=== PATIENT | female | born 1980 | race American Indian/Alaskan Native ===

== ENCOUNTER 2019-02-18 19:54 | Emergency (ER) | payer OTHER ==
--- NOTE | 2019-02-18 20:36 | Emergency Department Report ---
Blank Doc - Documentation Documentation: 38 y/o female with No PMH and whom smoked THC yesterday presents to ED c/o of right chest pain that radiates to right neck and right arm. not associated with movement, breathing, or activity.
--- NOTE | 2019-02-18 21:22 | XRay Report ---
PROCEDURE: XR CHEST ROUTINE 2V TECHNIQUE: PA and lateral chest radiographs were obtained. HISTORY: Chest Pain COMPARISONS: None. FINDINGS: Heart: Normal. Mediastinum/Vessels: Normal. Lungs/Pleural space: Normal. Bony thorax: No acute osseous abnormality. IMPRESSION: Normal examination. This document is electronically signed by Kevin Callejas MD., February 18 2019 09:20:26 PM ET
[2019-02-18 21:29] LABS: Basophils % (Auto) 0.3 % (0.0-1.8); Eosinophils % (Auto) 0.5 % (0.0-4.3); Hematocrit 37.9 % (30.3-42.9); Hemoglobin 13.1 gm/dl (10.1-14.3); Lymphocytes % (Auto) 22.3 % (13.4-35.0); Mean Corpuscular HGB Conc 35 % (30-34); Mean Corpuscular Volume 93 fl (79-97); Monocytes # (Auto) 0.6 K/mm3 (0.0-0.8); Platelet Count 374 K/mm3 (140-440); Red Blood Count 4.08 M/mm3 (3.65-5.03); Red Cell Distribution Width 13.2 % (13.2-15.2)
[2019-02-18 21:41] LABS: Alanine Aminotransferase 21 units/L (7-56); Albumin 4.6 g/dL (3.9-5); BUN/Creatinine Ratio 20; Blood Urea Nitrogen 14 mg/dL (7-17); Calcium 9.8 mg/dL (8.4-10.2); Hemolysis Index 5
--- NOTE | 2019-02-18 22:20 | Emergency Department Report ---
ED Chest Pain HPI - General Chief Complaint: Chest Pain Stated Complaint: CHEST PAIN Time Seen by Provider: 02/18/19 22:07 Source: patient Mode of arrival: Ambulatory Limitations: No Limitations - History of Present Illness Initial Comments: Patient is a 38-year-old female that presents to the emergency room with complaints of right sided chest pain radiating to the right neck. Patient states it started at 7 AM this morning. Patient states it has been constant all day long. Patient states she came in because it has not eased up. Patient states the pain is a 2-3 out of 10. Patient states the pain is worse with movement and better with rest. Patient denies fever and chills. Patient denies having a past medical history. Denies diabetes. Patient denies hypertension. Patient denies smoking. Patient states she uses alcohol socially. MD Complaint: chest pain -: Sudden Onset: during rest Pain Location: right chest Pain Radiation: neck Severity scale (0 -10): 2 Quality: tightness Consistency: constant Improves With: rest Worsens With: movement re: denies: nausea, vomting, diaphoresis, dyspnea, sense of impending doom Other Symptoms: denies: cough, fever, syncope, rash, acid taste in mouth, leg swelling, palpitations, burping Treatments Prior to Arrival: none Aspirin use within the Past 7 Days: (0) No - Related Data On Oral Contraceptives: No Previous Rx's Medication Instructions Recorded Last Taken Type Metaxalone [Skelaxin] 800 mg PO TID PRN #15 tablet 02/18/19 Unknown Rx Allergies Allergy/AdvReac Type Severity Reaction Status Date / Time No Known Allergies Allergy Unverified 02/18/19 20:35 Heart Score - HEART Score History: Slightly suspicious EKG: Normal Age: < 45 Risk factors: No known risk factors Troponin: < normal limit HEART Score: 0 ED Review of Systems ROS: Stated complaint: CHEST PAIN Other details as noted in HPI Constitutional: denies: chills, fever Eyes: denies: eye pain, eye discharge, vision change ENT: denies: ear pain, throat pain Respiratory: denies: cough, shortness of breath, wheezing Cardiovascular: chest pain. denies: palpitations Endocrine: no symptoms reported Gastrointestinal: denies: abdominal pain, nausea, diarrhea Genitourinary: denies: urgency, dysuria, discharge Musculoskeletal: denies: back pain, joint swelling, arthralgia Skin: denies: rash, lesions Neurological: denies: headache, weakness, paresthesias Psychiatric: denies: anxiety, depression Hematological/Lymphatic: denies: easy bleeding, easy bruising ED Past Medical Hx - Past Medical History Previous Medical History?: Yes Additional medical history: Diverticulitis - Surgical History Past Surgical History?: No - Family History Family history: no significant - Social History Smoking Status: Never Smoker Substance Use Type: Alcohol, Marijuana - Medications Home Medications: Home Medications Medication Instructions Recorded Confirmed Last Taken Type Metaxalone [Skelaxin] 800 mg PO TID PRN #15 tablet 02/18/19 Unknown Rx ED Physical Exam - General Limitations: No Limitations General appearance: alert, in no apparent distress - Head Head exam: Present: atraumatic, normocephalic - Eye Eye exam: Present: normal appearance, PERRL Pupils: Present: normal accommodation - ENT ENT exam: Present: mucous membranes moist - Neck Neck exam: Present: normal inspection - Respiratory Respiratory exam: Present: normal lung sounds bilaterally, chest wall tenderness (chest wall tenderness over right chest that reproduces patient's symptoms. Chest pain worse with movement of the right upper extremity). Absent: respiratory distress - Cardiovascular Cardiovascular Exam: Present: regular rate, normal rhythm. Absent: systolic murmur, diastolic murmur, rubs, gallop - GI/Abdominal GI/Abdominal exam: Present: soft, normal bowel sounds - Rectal Rectal exam: Present: deferred - Extremities Exam Extremities exam: Present: normal inspection - Back Exam Back exam: Present: normal inspection - Neurological Exam Neurological exam: Present: alert, oriented X3 - Psychiatric Psychiatric exam: Present: normal affect, normal mood - Skin Skin exam: Present: warm, dry, intact, normal color. Absent: rash ED Course Vital Signs 02/18/19 02/18/19 19:57 22:13 Temperature 98.0 F 98.2 F Pulse Rate 77 74 Respiratory 18 16 Rate Blood Pressure 145/93 Blood Pressure 147/87 [Left] O2 Sat by Pulse 100 100 Oximetry - Reevaluation(s) Reevaluation #1: Discussed all results with patient. Patient is stable for discharge. Patient will be discharged home. Patient agrees to plan of care. Patient given discharge instructions. Patient voiced understanding of discharge instructions. 02/18/19 22:20 JUUJ score - Juju Score Age > 65: (0) No Aspirin use within the Past 7 Days: (0) No 3 or more CAD Risk Factors: (0) No 2 or more Angina events in past 24 hrs: (0) No Known CAD with more than 50% Stenosis: (0) No Elevated Cardiac Markers: (0) No ST Deviation Greater than 0.5mm: (0) No JUJU Score: 0 ED Medical Decision Making - Lab Data Result diagrams: 02/18/19 20:49 02/18/19 20:49 - EKG Data -: EKG Interpreted by Me EKG shows normal: sinus rhythm, axis, intervals, QRS complexes, ST-T waves Rate: normal - Radiology Data Radiology results: report reviewed interpreted by me: No acute findings on chest x-ray PROCEDURE: XR CHEST ROUTINE 2V TECHNIQUE: PA and lateral chest radiographs were obtained. HISTORY: Chest Pain COMPARISONS: None. FINDINGS: Heart: Normal. Mediastinum/Vessels: Normal. Lungs/Pleural space: Normal. Bony thorax: No acute osseous abnormality. IMPRESSION: Normal examination. - Medical Decision Making Patient is a 38-year-old female that presents to emergency room for chest pain. Patient's chest pain appears to be musculoskeletal. Patient has tenderness to palpation over the right chest area reproducing of symptoms with palpation and movement of the right upper extremity. Patient's EKG shows normal sinus rhythm. Patient's chest pain started at 7 AM and troponins are negative. Patient's chest x-ray is negative. Patient's labs unremarkable. Patient stable for discharge. Patient will be discharged home. - Differential Diagnosis chest pain. Musculoskeletal pain. Chest wall tenderness. Costochondritis Critical care attestation.: If time is entered above; I have spent that time in minutes in the direct care of this critically ill patient, excluding procedure time. ED Disposition Clinical Impression: Muscular chest pain Chest pain Qualifiers: Chest pain type: unspecified Qualified Code(s): R07.9 - Chest pain, unspecified Muscle strain of chest wall Qualifiers: Encounter type: initial encounter Qualified Code(s): S29.011A - Strain of muscle and tendon of front wall of thorax, initial encounter Disposition: - TO HOME OR SELFCARE Is pt being admited?: No Does the pt Need Aspirin: No Condition: Stable Instructions: Chest Pain (ED), Muscle Strain (ED), Costochondritis (ED) Additional Instructions: Patient to follow-up with primary care in 2-3 days. Patient to avoid strenuous activity until cleared by primary care. Patient to take Tylenol or ibuprofen when necessary for pain. Patient to return to ER if condition worsens. Patient to take meds as directed. Patient to increase water. Patient to rest. Patient to continue all meds. Prescriptions: Metaxalone [Skelaxin] 800 mg PO TID PRN #15 tablet PRN Reason: Spasms Referrals: NEISHA CASTILLO MD [Primary Care Provider] - 3-5 Days Time of Disposition: 22:23
[2019-02-18 22:21] VITALS: BP 147/87
== END 2019-02-18 22:59 | disposition home or self-care (01) ==
LOC: ED 19:54
DX: S29.011A Strain of muscle and tendon of front wall of thorax, initial encounter (principal); R07.89 Other chest pain; F12.10 Cannabis abuse, uncomplicated; X58.XXXA Exposure to other specified factors, initial encounter; Y93.89 Activity, other specified; Y92.89 Other specified places as the place of occurrence of the external cause; Y99.8 Other external cause status
CPT/HCPCS: 36415; 71046; 80053; 84484; 85025; 93005; 93010